=== PATIENT | male | born 1940 ===

== ENCOUNTER → 2018-11-29 19:49 | Outpatient (REF) | payer MEDICARE, OTHER, SELFPAY ==
[2018-11-29 19:53] LABS: Bacteria Urine None Seen; RBC Urine None Seen (0-5/HPF)
[2018-11-29 20:49] LABS: Add Manual Diff / Slide Review NO; Basophils Absolute Auto 0 /uL (0-100); Basophils Percent Auto 0.4 % (0-2); Eosinophils Absolute Auto 200 /uL (0-450); Eosinophils Percent Auto 2.6 % (2-4); Hematocrit 45.3 % (41-53); Hemoglobin 14.9 g/dL (13.5-17.5); Lymphocytes Absolute Auto 2400 /uL (1100-4500); Lymphocytes Percent Auto 28.8 % (25-40); Mean Corpuscular HGB Conc 32.8 % (30-36); Mean Corpuscular Hemoglobin 31.5 PG (26-34); Mean Corpuscular Volume 96.2 fL (80-100); Monocytes Absolute Auto 1000 /uL (0-900); Monocytes Percent Auto 11.7 % (3-14); Neutrophils Absolute Auto 4600 /uL (1500-7000); Neutrophils Percent Auto 56.5 % (50-75); Platelet Count 277 X10^3/uL (150-400); Red Blood Cell Count 4.71 X10^6/uL (4.5-5.9); Red Cell Distribution Width 14.4 % (11.6-14.8); White Blood Cell Count 8.2 X10^3/uL (4.5-11.0)
[2018-11-29 20:51] LABS: Appearance Urine UA CLOUDY; Bilirubin Urine UA NEGATIVE (NEGATIVE); Color Urine UA YELLOW; Glucose Urine UA NEGATIVE (Negative); Ketones Urine UA NEGATIVE (NEGATIVE); Leukocyte Esterase Urine UA NEGATIVE (NEGATIVE); Nitrite Urine UA NEGATIVE (Negative); Occult Blood Urine UA NEGATIVE (Negative); Protein Urine UA TRACE (Negative); Specific Gravity Urine UA 1.025 (1.000-1.035); Urobilinogen Urine UA 0.2 E.U./dL (0.2); pH Urine UA 5.5 (4.5-8.0)
[2018-11-29 20:57] LABS: Alanine Aminotransferase 44 IU/L (21-72); Albumin 4.1 g/dL (3.5-5.0); Albumin Globulin Ratio 1.5 (1.0-2.8); Alkaline Phosphatase 61 U/L (38-126); Aspartate Aminotransferase 30 IU/L (17-59); BUN Creatinine Ratio 16.9 (6-22); Bilirubin Total 0.7 mg/dL (0.2-1.3); Blood Urea Nitrogen 22 mg/dL (9-20); Calcium 9.8 mg/dL (8.4-10.2); Carbon Dioxide 25 mmol/L (22-32); Chloride 106 mmol/L (98-107); Estimated Glomerular Filt Rate 53.7 mL/min (>60); Globulin 2.8 g/dL (1.7-4.1); Glucose 68 mg/dL (80-110); HEMOLYSIS < 15 (0-50); Sodium 143 mmol/L (137-145); Total Protein 6.9 g/dL (6.3-8.2); Uric Acid 5.6 mg/dL (3.5-8.5)
[2018-11-29 21:13] LABS: Creatinine Urine Random 160.9 mg/dL
[2018-11-29 21:19] LABS: Microalbumi Creatinin Ratio Ur 83.9 ug/mg CR (<30); Microalbumin Urine Random 13.5 mg/dL (0-1.6)
[2018-11-29 21:33] LABS: Potassium 5.5 mmol/L (3.4-5.1)
[2018-11-29 21:34] LABS: Amorphous Sediment Urine 2+; Calcium Oxalate Crystals Urine Few; Squamous Epithelial Cell Urine 0-1 /HPF; WBC Urine 0-1/HPF (0-5/HPF)
[2018-11-29 21:35] LABS: Culture Indicated Urine Cult Not Indicated
[2018-12-04 15:02] LABS: Parathyroid Hormone Int 77 pg/mL (14-64)
== END ==
LOC: LAB 19:49
PROVIDERS: Visit Provider Specialist
DX: N18.3 Chronic kidney disease, stage 3 (moderate) (principal); N25.0 Renal osteodystrophy; E78.2 Mixed hyperlipidemia; R82.90 Unspecified abnormal findings in urine; E21.3 Hyperparathyroidism, unspecified
CPT/HCPCS: 36415; 80053; 81001; 82043; 82570; 83970; 84550; 85025